=== PATIENT | male | born 1990 ===

== ENCOUNTER 2017-03-18 17:23 | Emergency (ER) | payer SELFPAY ==
[2017-03-18] MEDS ORDERED: NO HOME MEDICATION XX (17:51)
== END 2017-03-18 20:17 ==
LOC: EDMED 17:23
DX: G43.909 Migraine, unspecified, not intractable, without status migrainosus (principal); Z88.0 Allergy status to penicillin; F17.210 Nicotine dependence, cigarettes, uncomplicated
CPT/HCPCS: J1200; J1885; J2765; J7030